=== PATIENT | male | born 1980 | race Two or more races ===

== ENCOUNTER 2017-07-02 06:57 | Inpatient (IN) | payer OTHER ==
[~2017-07-02] VITALS: Ht 172.7 cm; Wt 88.5 kg
[2017-07-02 07:09] VITALS: Ht 172.7 cm; Wt 88.5 kg
[2017-07-02 07:50] LABS: BASOPHIL % 0.8 % (0-2); PLATELET COUNT 220 x10^3mcL (130-400); RED CELL DISTRIBUTION WIDTH 12.5 % (11.5-14.5)
[2017-07-02 08:09] LABS: CALCIUM 9.2 mg/dL (8.5-10.1); CARBON DIOXIDE 27.9 mmol/L (21-32); CHLORIDE SERUM 101 mmol/L (98-107); GFR1 > 60 mL/min; GLUCOSE SERUM 129 mg/dL (74-106); POTASSIUM SERUM 4.4 mmol/L (3.5-5.1); SODIUM SERUM 135 mmol/L (136-145)
[2017-07-02 08:12] LABS: microscopic required? YES; urine erythrocyte TRACE (NEGATIVE)
[2017-07-02 08:13] LABS: ALBUMIN 4.3 g/dL (3.4-5.0); ALKALINE PHOSPHATASE 60 U/L (46-116); ALT/SGPT 35 U/L (16-63); AMYLASE 78 U/L (25-115); AST/SGOT 27 U/L (15-37); BILIRUBIN TOTAL 0.3 mg/dL (0.20-1.00); LIPASE 107 IU/L (73-393); TOTAL PROTEIN, SERUM 7.9 g/dL (6.4-8.2)
[2017-07-02 15:22] LABS: T3 TOTAL 1.1 ng/mL
[2017-07-02 15:50] VITALS: BP 118/73
[2017-07-02 15:53] LABS: FREE T4 1.08 ng/dL (0.76-1.46); FREE THYROXINE INDEX 2.3 ug/dL (1.4-4.5); T4(THYROXINE) 6.6 ug/dL (4.7-13.3)
[2017-07-02 16:24] LABS: CHOLESTEROL/HDL RATIO 3.4; MAGNESIUM 1.9 mg/dL (1.8-2.4); PHOSPHOROUS 3.1 mg/dL (2.5-4.9)
[2017-07-02 21:37] VITALS: BP 119/69
[2017-07-03 06:01] VITALS: BP 114/78
[2017-07-03 06:23] LABS: PLATELET COUNT 252 x10^3mcL (130-400); RED CELL DISTRIBUTION WIDTH 12.7 % (11.5-14.5)
[2017-07-03 06:26] LABS: CARBON DIOXIDE 26.6 mmol/L (21-32); CHLORIDE SERUM 103 mmol/L (98-107); GFR1 > 60 mL/min; GLUCOSE SERUM 129 mg/dL (74-106); POTASSIUM SERUM 4.2 mmol/L (3.5-5.1); SODIUM SERUM 138 mmol/L (136-145)
[2017-07-03 06:57] LABS: BASOPHIL % 0 % (0-2)
[2017-07-03 08:51] VITALS: BP 118/66
[2017-07-03 13:40] VITALS: BP 132/78
[2017-07-03 14:33] LABS: BASOPHIL % 0.6 % (0-2); PLATELET COUNT 199 x10^3mcL (130-400); RED CELL DISTRIBUTION WIDTH 12.4 % (11.5-14.5)
[2017-07-03 17:29] VITALS: BP 132/78
[2017-07-03] MEDS ORDERED: LEVAQUIN750 MG PO (17:39)
[2017-07-03] MEDS ORDERED: MOT800 PO (17:40)
[2017-07-03] MEDS ORDERED: BD LACTINEX1.4 MG PO (17:40)
[2017-07-03] MEDS ORDERED: NORCO1 TA2 PO (17:41)
== END 2017-07-03 18:56 | disposition home or self-care (01) | DRG 483 ==
LOC: ED 06:57 → DU 11:35 → ED 11:35 → EDBEDREQ 12:09 → MU 12:12 → EDBEDREQ 12:12 → EDBEDREQSVC 12:12 → DU 12:12 → MU 07-03 10:13
PROVIDERS: Emergency Medicine; Family Medicine Sports Medicine; Urology
PROC: 0VJ80ZZ Inspection of Scrotum and Tunica Vaginalis, Open Approach (ICD-10-PCS; 2017-07-02)
PROC: 0VNB0ZZ Release Left Testis, Open Approach (ICD-10-PCS; 2017-07-02)
PROC: 0VSC0ZZ Reposition Bilateral Testes, Open Approach (ICD-10-PCS; principal; 2017-07-02 12:00)
DX: N44.00 Torsion of testis, unspecified (principal); E87.1 Hypo-osmolality and hyponatremia; E66.3 Overweight; Z68.29 Body mass index [BMI] 29.0-29.9, adult; Z83.3 Family history of diabetes mellitus; Z82.49 Family history of ischemic heart disease and other diseases of the circulatory system; Z83.49 Family history of other endocrine, nutritional and metabolic diseases
CPT/HCPCS: 83880; 84439; 94150; J0330; J0690; J1170; J1885; J2250; J2270; J2405; J2704; J3010; J3490; J7030; J7120